=== PATIENT | female | born 1940 | race Caucasian/White ===

== ENCOUNTER 2020-10-04 06:33 | Inpatient (IN) | payer OTHER ==
[~2020-10-04] VITALS: Ht 124.5 cm; Wt 44.1 kg
--- NOTE | ~2020-10-04 | PROC ---
[address] [address] PROCEDURE REPORT Name: ARIS CATHERINE Room: [address] IN [facility]#: [id number] Admission: 10/04/20 Attend Phys: Tera Mcintosh Discharge: Date of : 42 Report #: [id number] THIS REPORT FOR: cc: FAM - No family physician/PCP FAM - No family physician/PCP [facility],Medical Records Staff ~ For GI report, please see the Provation report in Perceptive 7 content. By: 1335Medical Records Staff TERRY /HAYDE
--- NOTE | ~2020-10-04 | EMS ---
[address] [address] EMS Patient Care Report Name: ARIS CATHERINE Room: [address] IN [facility]#: [id number] Admission: 10/04/20 Attend Phys: Tera Mcintosh Discharge: Date of : 42 Report #: [id number] THIS REPORT FOR: //name// Report Transmitted: 10/04/2020 18:37 EMS Care Summary [facility] Incident [id number] @ 10/04/2020 05:54 Incident Location [address] [place] [address] Patient ARIS CATHERINE Female, 79 Years 1940 Patient Address [address] [place] [address] Patient History Breast Cancer,Cardiac Condition - Other, Patient Allergies Morphine, Chief Complaint Nausea Disposition Transported No Lights/[place] Dispatch Reason Sick Person Transported To [facility] Narrative [facility] was dispatched for Vomiting / dehydration. Upon our arrival, pt was sitting on the edge of the bed with a bowl in her hand for vomiting. Bowl was empty. Pt ws alert and oriented x4, and stated that she has been vomiting and felt bad for the last 2 days. Vitals were obtained. [place] [address] EMS Patient Care Report Name: ARIS CATHERINE Room: [address] IN [facility]#: [id number] Admission: 10/04/20 Attend Phys: Tera Mcintosh Discharge: Date of : 42 Report #: [id number] elevated, pt stated that she has high blood pressure and has not been able to keep her meds down. Medical history, High blood pressure, breast cancer {years ago, double mastectomy}, and cardiac history that pt could not remember exactly what the exact issue was with her heart. Pt also stated that she did not know what her meds were, just that her doctor had her list. Pt was transferred to the stretcher by standing and pivoting to the stretcher. Pt stated that she had a headache, 8 out of 10 on pain scale, and frequent urination with no pain upon urinating. Pt stated that her ABD was tender from vomiting so much. Denies any other pain. Pt rested comfortably enroute to the hospital and was monitored during transport. Care was transferred to [facility], Nuha OSORIO, in room 6 Initial Vitals @06:23P: 80,R: 20,BP: 207/110,Pain: 4/10,SpO2: 98, @06:01P: 80,R: 20,BP: 180/100,GCS: 15,SpO2: 97,Revised Trauma: 12, Assessments @06:01MENTAL:Person Oriented,Time Oriented,Place Oriented,Event Oriented,SKIN:HEENT:Head/Face: No Abnormalities,Eyes: No Abnormalities,Neck/Airway: No Abnormalities,LUNG SOUNDS:General: Nausea,General: Vomiting,Left Lower: Tenderness,Right Lower: Tenderness,Left Upper: No Abnormalities,Right Upper: No Abnormalities,ABDOMEN:General: Nausea,General: Vomiting,Left Lower: Tenderness,Right Lower: Tenderness,Left Upper: No Abnormalities,Right Upper: No Abnormalities,PELVIS//GI:EXTREMITIES:Right Arm: No Abnormalities,PULSE:NEURO: Impression Vomiting Timeline 05:51,Call Received 05:54,Dispatched 05:58,En Route 06:00,Initial Responder On Scene 06:00,On Scene 06:00,At Patient 06:01,BP: 180/100 M,PULSE: 80,RR: 20 R,SPO2: 97 Ox,ETCO2: ,BG: ,PAIN: ,GCS: 15, 06:08,Depart Scene 06:23,BP: 207/110 M,PULSE: 80,RR: 20 R,SPO2: 98 Ox,ETCO2: ,BG: ,PAIN: 4,GCS: , 06:27,At Destination 06:54,Call Closed 06:54,In District Disclaimer v1.1 Copyright 2020 [employer] This EMS Care Summary contains data elements from [place] [address] EMS Patient Care Report Name: ARIS CATHERINE Room: [address] IN [facility]#: [id number] Admission: 10/04/20 Attend Phys: Tera Mcintosh Discharge: Date of : 42 Report #: [id number] (which may be displayed differently). It is designed to provide pertinent information for the following purposes: continuity of care, clinical quality, and state data reporting. The complete legal record is available to ED staff and administrators of the receiving hospital in [facility]'s Patient Tracker. All data is provided "as is."
--- NOTE | ~2020-10-04 | EMS ---
[address] [address] EMS Patient Care Report Name: ARIS CATHERINE Room: [address] IN [facility]#: [id number] Admission: 10/04/20 Attend Phys: Tera Mcintosh Discharge: Date of : 42 Report #: [id number] THIS REPORT FOR: //name// Report Transmitted: 10/05/2020 19:30 EMS Care Summary [facility] Incident [id number] @ 10/04/2020 05:54 Incident Location [address] [place] [address] Patient ARIS CATHERINE Female, 79 Years 1940 Patient Address [address] [place] [address] Patient History Breast Cancer,Cardiac Condition - Other, Patient Allergies Morphine, Chief Complaint Nausea Disposition Transported No Lights/[place] Dispatch Reason Sick Person Transported To [facility] Narrative [facility] was dispatched for Vomiting / dehydration. Upon our arrival, pt was sitting on the edge of the bed with a bowl in her hand for vomiting. Bowl was empty. Pt ws alert and oriented x4, and stated that she has been vomiting and felt bad for the last 2 days. Vitals were obtained. B/[place] [address] EMS Patient Care Report Name: ARIS CATHERINE Room: [address] IN [facility]#: [id number] Admission: 10/04/20 Attend Phys: Tera Mcintosh Discharge: Date of : 42 Report #: [id number] elevated, pt stated that she has high blood pressure and has not been able to keep her meds down. Medical history, High blood pressure, breast cancer {years ago, double mastectomy}, and cardiac history that pt could not remember exactly what the exact issue was with her heart. Pt also stated that she did not know what her meds were, just that her doctor had her list. Pt was transferred to the stretcher by standing and pivoting to the stretcher. Pt stated that she had a headache, 8 out of 10 on pain scale, and frequent urination with no pain upon urinating. Pt stated that her ABD was tender from vomiting so much. Denies any other pain. Pt rested comfortably enroute to the hospital and was monitored during transport. Care was transferred to [facility], Nuha OSORIO, in room 6 Initial Vitals @06:23P: 80,R: 20,BP: 207/110,Pain: 4/10,SpO2: 98, @06:01P: 80,R: 20,BP: 180/100,GCS: 15,SpO2: 97,Revised Trauma: 12, Assessments @06:01MENTAL:Person Oriented,Time Oriented,Place Oriented,Event Oriented,SKIN:HEENT:Head/Face: No Abnormalities,Eyes: No Abnormalities,Neck/Airway: No Abnormalities,LUNG SOUNDS:General: Nausea,General: Vomiting,Left Lower: Tenderness,Right Lower: Tenderness,Left Upper: No Abnormalities,Right Upper: No Abnormalities,ABDOMEN:General: Nausea,General: Vomiting,Left Lower: Tenderness,Right Lower: Tenderness,Left Upper: No Abnormalities,Right Upper: No Abnormalities,PELVIS//GI:EXTREMITIES:Right Arm: No Abnormalities,PULSE:NEURO: Impression Vomiting Timeline 05:51,Call Received 05:54,Dispatched 05:58,En Route 06:00,Initial Responder On Scene 06:00,On Scene 06:00,At Patient 06:01,BP: 180/100 M,PULSE: 80,RR: 20 R,SPO2: 97 Ox,ETCO2: ,BG: ,PAIN: ,GCS: 15, 06:08,Depart Scene 06:23,BP: 207/110 M,PULSE: 80,RR: 20 R,SPO2: 98 Ox,ETCO2: ,BG: ,PAIN: 4,GCS: , 06:27,At Destination 06:54,Call Closed 06:54,In District Disclaimer v1.1 Copyright 2020 [employer] This EMS Care Summary contains data elements from the [place] [address] EMS Patient Care Report Name: ARIS CATHERINE Room: [address] IN [facility]#: [id number] Admission: 10/04/20 Attend Phys: Tera Mcintosh Discharge: Date of : 42 Report #: [id number] (which may be displayed differently). It is designed to provide pertinent information for the following purposes: continuity of care, clinical quality, and state data reporting. The complete legal record is available to ED staff and administrators of the receiving hospital in [facility]'s Patient Tracker. All data is provided "as is."
[2020-10-04 06:41] VITALS: BP 194/110
[2020-10-04] MEDS ORDERED: TOPROL XL25 MG PO (06:49)
[2020-10-04] MEDS ORDERED: LIPITOR10 MG PO (06:50)
[2020-10-04] MEDS ORDERED: HYDROCODON-ACE1 EAC7 PO (06:50)
[2020-10-04] MEDS ORDERED: PLAVIX 75 MG TA75 MG PO (06:50)
[2020-10-04 06:54] LABS: HEMATOCRIT 29.2 % (37.0-47.0); HEMOGLOBIN 9.6 gm/dL (12.0-15.0); MCH 29.5 pg (26.0-34.0); MCV 89.6 fL (80.0-100.0); MPV 6.4 fl. (7.2-11.1); NUCLEATED RBCS 0 /100WBC; PLATELET COUNT* 710 thou/uL (150-400); RBC 3.25 mil/uL (4.20-5.00); WBC 13.6 thou/uL (4.0-11.0)
[2020-10-04 07:04] LABS: ANION GAP 12 mmol/L (7-16); BUN 31 mg/dL (7-18); CALCIUM 10.6 mg/dL (8.5-10.1); CHLORIDE 101 mmol/L (98-107); CO2 24 mmol/L (21-32); CREATININE 1.6 mg/dL (0.6-1.3); GLUCOSE 182 mg/dL (70-99); POTASSIUM 3.8 mmol/L (3.5-5.1); SODIUM 137 mmol/L (136-145)
[2020-10-04 07:13] LABS: PROTIME 10.2 Seconds (9.20-11.50)
[2020-10-04 07:14] LABS: ALBUMIN 2.7 g/dL (3.4-5.0); ALKALINE PHOSPHATASE 97 U/L (46-116); NT-PRO BRAIN NAT PEPTIDE > 35000 pg/mL (<300); SGOT 17 U/L (15-37); SGPT 27 U/L (30-65); TOTAL BILIRUBIN 0.2 mg/dL (<0.1-1.0); TOTAL PROTEIN 8.3 g/dL (6.4-8.2)
[2020-10-04 07:59] LABS: URINE BILIRUBIN NEGATIVE (Negative); URINE BLOOD 3+ (Negative); URINE CLARITY CLEAR; URINE COLOR YELLOW; URINE GLUCOSE-RANDOM TRACE (Negative); URINE KETONES NEGATIVE (Negative); URINE LEUKOCYTES-REFLEX NEGATIVE (Negative); URINE PROTEIN 2+ (Negative); URINE UROBILINOGEN 0.2 E.U./dl (0.2-1.0)
[2020-10-04 08:01] LABS: ABSOLUTE LYMPHOCYTES 1.4 thou/uL (0.8-5.3); ABSOLUTE MONOCYTES 0.4 thou/uL (0.0-1.2); ABSOLUTE NEUTROPHILS 11.8 thou/uL (1.6-8.1); HYPOCHROMASIA 1+; PLATELET ESTIMATE INCREASED
[2020-10-04 08:02] LABS: MICROCYTES Occasional
[2020-10-04 08:03] LABS: URINE NITRITE-REFLEX POSITIVE (Negative)
[2020-10-04 08:06] LABS: BACTERIA-REFLEX >30 Many /HPF (None Seen); CASTS None Seen /LPF (None Seen); CRYSTALS None Seen /LPF (None Seen); MUCUS None Seen strn/LPF (None Seen); SQUAMOUS 0-3 Few /LPF (0-3); URINE RBC 3-10 Few /HPF (0-2); URINE WBC-REFLEX None Seen /HPF (0-5)
[2020-10-04 09:25] LABS: CALCIUM 10.1 mg/dL (8.5-10.1); CREATININE 1.6 mg/dL (0.6-1.3); POTASSIUM 3.4 mmol/L (3.5-5.1)
[2020-10-04] MEDS ORDERED: ZOFRAN ODT4 MG PO (11:38)
[2020-10-04] MEDS ORDERED: CEPHALEXIN500 MG PO (11:38)
[2020-10-04 16:00] VITALS: BP 185/88
[2020-10-04 21:00] VITALS: BP 171/91
[2020-10-05] VITALS (7 sets, daily range): BP systolic 119–183; BP diastolic 46–111
--- NOTE | 2020-10-05 10:11 | NUR ---
PT IS 79 Y/O FEMALE BOARDING IN PACU BAY "C" UNTIL MED/SURG BED BECOMES AVAILABLE. PT IS AXOX4. HR IN THE ONE TEENS UPON ARRIVAL TO PRE OP. B/P ELEVATED AT 160/104. PT STATES SHE HAS CHRONIC BILATERAL NECK/SHOULDER PAIN WHICH SHE RATES AT A 7/10. SHE TAKES HYDROCODONE (SHE STATES THIS IS THE ONLY PAIN PILL WHICH WORKS FOR HER) FOR HER CHRONIC PAIN. PT IS HERE FOR PYELONEPHRITIS. SHE WILL BE RCVNG ANTIBIOTICS WELL (RCV'D IV ROCEPHIN IN ER YESTERDAY). ROOM AIR. PT HAS D5NS RUNNING AT 100 ML/HR. PT NAUSEOUS, GIVEN SCHEDULED PHENERGAN. CALL LIGHT WITHIN REACH. WILL CONTINUE TO MONITOR PT CLOSELY.
[2020-10-05 11:44] LABS: CREATININE 1.5 mg/dL (0.6-1.3); POTASSIUM 3.5 mmol/L (3.5-5.1)
[2020-10-05 11:47] LABS: MAGNESIUM 1.9 mg/dL (1.8-2.4); PHOSPHORUS* 3.1 mg/dL (2.5-4.9)
--- NOTE | 2020-10-05 12:44 | NUR ---
Admission Assessment Admitted from Ambulance from home Mental Status upon admission Alert & Oriented x 3 Living Arrangements: Stairs nephews House -inlaw quarters in basement Lives with: or they live with patient Other family: Pt recently moved in with Nephew Basilio and his Trena Support system: Name Phone number Chin Marino [phone] Nephew Can patient return to prior living arrangements? Yes Activities of daily living: Dependent Trena-niece, assists pt with bathing, dressing, takes her to Dr taylor and prepares meals Assistive device: Bathroom set up with handicap -bars , Roller Walker, Shower chair Prior resource use: Home healthcare services-Doesn't want to use same company, believes stole money off table.-this was in [place], [place]. HH after hospitalization year ago. Rehab in [place], [place] x4 weeks after surgery last year
--- NOTE | 2020-10-05 14:04 | EKG ---
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 : 1940 Requested By: Ama Montero Order Number: [id number] MD: Diego Carranza Measurements Intervals [place] Rate: 80 P: 140 WA: 154 QRS: 134 QRSD: 98 T: 150 QT: 402 QTc: 464 Interpretive Statements Sinus or ectopic atrial rhythm Left posterior fascicular block Low voltage, extremity leads Abnormal R-wave progression, late transition Abnrm T, consider ischemia, anterolateral lds No previous ECG available for comparison Electronically Signed On 10-05-2020 14:04:11 CDT by Diego Carranza [email or web address] <ELECTRONICALLY SIGNED> By: Diego Carranza MD, [facility] 10/05/20 1404 0656 Diego Carranza MD, [facility] /EPI
--- NOTE | 2020-10-05 14:34 | NUR ---
PT C/O THAT THE HYDROCODONE SHE TAKES FOR HER CHRONIC NECK/SHOULDER PAIN ONLY LASTED 2 HOURS. PT ASKING FOR MORE PAIN MEDICATION. PT ALSO STATES SHE IS NAUSEOUS AGAIN. ASKED PT IF SHE SPOKE W/DOCTOR WHEN HE WAS HERE RECENTLY ABOUT HER CHRONIC BACK PAIN. PT STATED, "NO, CAN YOU PLEASE TALK TO HIM." YOU CALL MD SENT TO DR. YOON. PT GIVEN IV ZOFRAN.
--- NOTE | 2020-10-05 16:20 | NUR ---
PT TAKEN UPSTAIRS TO ROOM 215 VIA BED. REPORT GIVEN TO DEVON CHEATHAM.
--- NOTE | 2020-10-05 19:40 | NUR ---
Pt arrived to floor around 1630. Pt settled into room. Vitals signs stable. This nurse agrees with morning assessment done by previous nurse. Bed in low position, bed alarm on, call light within reach.
[2020-10-06 01:18] VITALS: BP 162/110
[2020-10-06 04:34] VITALS: BP 153/94
--- NOTE | 2020-10-06 06:42 | NUR ---
PT SLEPT OFF AND ON OVERNIGHT. CO NAUSEA BUT NO EMESIS, PAIN AND NAUSEA MEDS GIVEN ORDERED. PT TURNED AND REPOSITIONED Q2 HOURS AND PRN FOR SKIN CARE AND COMFORT, JAZZY GIVEN AND BARRIER CREAM APPLIED TO RED BUTTOCKS. WOUND PHOTO TAKEN AND PLACED IN CHART. RAC IVF INFUSING PER PUMP. ABLE TO USE CALL LITE AND MAKE NEEDS KNOWN. UP TO BSC TO VOID AND SOME STRESS INCONTINENCE NOTED.
--- NOTE | 2020-10-06 08:31 | NUR ---
WOUND NURSE: PATIENT SEEN TO ADDRESS REDNESS AND MINOR EXCORIATION TO SACRUM AND BUTTOCKS. PRESENTS WITH LOCALIZED REDNESS AND TENDERNESS AND MINOR EXCORIATION TO COCCYX. PATIENT REPORTS THIS DEVELOPED WITH BOWEL INCONTINENCE. PATIENT WEARS INCONTINENCE BRIEFS. CLEANSED WITH PERINEAL WIPES, THEN APPLIED Z-GUARD MOISTURE BARRIER PASTE. PATIENT STATED IT FELT BETTER ALREADY. SUSPECT THIS IS INCONTINENCE ASSOCIATED DERMATITIS. RECOMMEND CONTINUE Z-GUARD Q SHIFT.
--- NOTE | 2020-10-06 15:52 | NUR ---
Anticipate dc tomorrow. Plan home with HH
--- NOTE | 2020-10-06 20:30 | NUR ---
Pt reamined A&O x4 for entire shift. Pt pleasant with staff, vital signs stable. Pt complains of nausea with little relief. Meds given per MAR. Pt did not vomit, just complaints of nausea. Pt noted being able to keep a few bites of lunch and dinner down. Bed in low position, bed alarm on, call light within reach.
--- NOTE | 2020-10-06 21:00 | NUR ---
RECEIVED REPORT FROM LEIF OSORIO PRIOR TO PATIENT ARRIVAL AT 2111 IN STABLE CONDITION BY BED. ORIENTED TO ROOM AND ROUTINES. CONTINUE TO MONITOR.
[2020-10-06 21:12] VITALS: BP 141/84
--- NOTE | 2020-10-07 04:52 | NUR ---
PATIENT HAS REMAINED ALERT AND ORIENTED X 4 FROM ARRIVAL TO UNIT AT 2112 THROUGHOUT THE SHIFT AND RESTING QUIETLY ON HOURLY ROUNDS. UP TO BSC WITH CGA. STRESS INCONT AT TIMES. JAZZY-CARE COMPLETED HS WITH Z-GUARD CREAM APPLIED TO SACRUM/BUTTOCKS WOUNDS. TURNED Q2 HOURS WITH PATIENT TURNING SELF AT TIMES. MEDICATED FOR PAIN PER PATIENT REQUEST X 1 OF THIS WRITING FOR CHRONIC ARTHRITIS PAIN TO GOOD EFFECT. VITAL SIGNS STABLE. MEDS PER ORDER. HS SNACK PROVIDED WITHOUT NAUSEA OR EMESIS. FALL PRECAUTIONS IN PLACE. CONTINUE TO MONITOR.
[2020-10-07 07:47] VITALS: BP 144/85
[2020-10-07 11:25] VITALS: BP 144/85
[2020-10-07 14:35] VITALS: BP 144/85
--- NOTE | 2020-10-07 14:54 | NUR ---
CM faxed HH referral to [facility] to see if they will be able [place]
[2020-10-07 16:06] VITALS: BP 127/85
[2020-10-08 00:18] VITALS: BP 147/87
--- NOTE | 2020-10-08 07:57 | NUR ---
PATIENT SLEPT MOST OF THE NIGHT. PATIENT WAS GIVEN PAIN AND NAUSEA MEDS TWICE THIS SHIFT. PATIENT COULD POSSIBLY DC HOME TODAY.
[2020-10-08 08:00] VITALS: BP 143/93
[2020-10-08 11:48] LABS: ABSOLUTE BASOPHILS 0.1 thou/uL (0.0-0.2); ABSOLUTE EOSINOPHILS 0.3 thou/uL (0.0-0.7); ABSOLUTE LYMPHOCYTES 1.2 thou/uL (0.8-5.3); ABSOLUTE MONOCYTES 0.8 thou/uL (0.0-1.2); ABSOLUTE NEUTROPHILS 9.1 thou/uL (1.6-8.1); BASOPHILS 0.6 %; EOSINOPHILS 2.7 %; HEMOGLOBIN 7.3 gm/dL (12.0-15.0); LYMPHOCYTES 10.2 %; MCH 28.7 pg (26.0-34.0); MCHC 31.7 g/dL (28.0-37.0); MCV 90.4 fL (80.0-100.0); MONOCYTES 7.1 %; NUCLEATED RBCS 0 /100WBC; PLATELET COUNT* 428 thou/uL (150-400); POLYS 79.4 %; RBC 2.55 mil/uL (4.20-5.00); RDW-CV 18.4 % (10.5-14.5); WBC 11.5 thou/uL (4.0-11.0)
[2020-10-08 11:53] LABS: ALBUMIN 2.2 g/dL (3.4-5.0); CALCIUM 8.2 mg/dL (8.5-10.1); CREATININE 1.6 mg/dL (0.6-1.3); POTASSIUM 3.1 mmol/L (3.5-5.1); TOTAL BILIRUBIN 0.2 mg/dL (<0.1-1.0); TOTAL PROTEIN 6.3 g/dL (6.4-8.2)
--- NOTE | 2020-10-08 14:22 | NUR ---
Anticipate dc in 1-2 days. Pt continues to have n/v. Plan is home with [facility] to fax orders at dc, initial referral sent yesterday and [facility] is able to accept Pt. [facility] f: [phone]
[2020-10-08 16:31] VITALS: BP 139/96
--- NOTE | 2020-10-08 17:28 | NUR ---
PATIENT RESTING IN BED. PATIENT IS UP WITH MODERATE ASSIST OF ONE TO CHAIR. PATIENT HAS HAD COMPLAINTS OF BACK AND COCCYX PAIN TREATED PARTIALLY WITH MEDICATION. CREAM APPLIED TO COCCYX ORDERED. PATIENT HAS FAIR APPETITE. IV ABX INFUSED ORDERED. PATIENT DENIES ANY NEEDS AT THIS TIME. CALL LIGHT WITHIN REACH.
[2020-10-08 20:00] VITALS: BP 139/92
[2020-10-09 08:04] VITALS: BP 135/94
[2020-10-09 08:05] VITALS: BP 135/94
--- NOTE | 2020-10-09 08:09 | NUR ---
Alert and oriented x 4. She is up with stand by assist x1 to bedside commode. She is having shoulder and back pain and had painmeds x 3 this shift. Nausea med x 1. She has slept well.
[2020-10-09 08:55] LABS: ABSOLUTE BASOPHILS 0.1 thou/uL (0.0-0.2); ABSOLUTE EOSINOPHILS 0.4 thou/uL (0.0-0.7); ABSOLUTE LYMPHOCYTES 1.4 thou/uL (0.8-5.3); ABSOLUTE MONOCYTES 0.8 thou/uL (0.0-1.2); ABSOLUTE NEUTROPHILS 8.9 thou/uL (1.6-8.1); BASOPHILS 0.7 %; EOSINOPHILS 3.4 %; HEMATOCRIT 24.1 % (37.0-47.0); HEMOGLOBIN 7.6 gm/dL (12.0-15.0); LYMPHOCYTES 11.9 %; MCH 28.8 pg (26.0-34.0); MCHC 31.4 g/dL (28.0-37.0); MCV 91.6 fL (80.0-100.0); MONOCYTES 7.2 %; NUCLEATED RBCS 0 /100WBC; PLATELET COUNT* 411 thou/uL (150-400); POLYS 76.8 %; RBC 2.63 mil/uL (4.20-5.00); RDW-CV 18.5 % (10.5-14.5); WBC 11.6 thou/uL (4.0-11.0)
[2020-10-09 09:06] LABS: CREATININE 1.7 mg/dL (0.6-1.3); POTASSIUM 3.4 mmol/L (3.5-5.1)
--- NOTE | 2020-10-09 15:04 | NUR ---
Anticipate dc this weekend. Urology consulted. Pt continues to have n/v and pain. Plan home with [facility] at dc. Initial referral faxed, dc orders will need to be faxed at discharge to [phone]
[2020-10-09 15:57] VITALS: BP 143/92
--- NOTE | 2020-10-09 18:36 | NUR ---
PATIENT RESTING IN BED. PATIENT HAS COMPLAINTS OF BACK/SHOULDER/NECK PAIN, TREATED ADEQUATELY WITH MEDICATION. PATIENT HAS COMPLAINTS OF NAUSEA, SCHEDULED PHENERGAN GIVEN. PATIENT HAS GOOD APPETITE. PATIENT IS UP WITH ASSIST. PATIENT HAS SMALL WOUND TO COCCYX, OINTMENT APPLIED ORDERED. PATIENT DENIES ANY NEEDS AT THIS TIME. CALL LIGHT WITHIN REACH.
[2020-10-09 22:00] VITALS: BP 140/92
[2020-10-10 05:23] LABS: HEMATOCRIT 23.4 % (37.0-47.0); HEMOGLOBIN 7.6 gm/dL (12.0-15.0); MCH 29.7 pg (26.0-34.0); MCHC 32.4 g/dL (28.0-37.0); MCV 91.8 fL (80.0-100.0); MPV 7.2 fl. (7.2-11.1); RBC 2.55 mil/uL (4.20-5.00); RDW-CV 18.5 % (10.5-14.5); WBC 11.4 thou/uL (4.0-11.0)
[2020-10-10 05:44] LABS: CALCIUM 8.4 mg/dL (8.5-10.1); CREATININE 1.6 mg/dL (0.6-1.3); POTASSIUM 3.4 mmol/L (3.5-5.1)
--- NOTE | 2020-10-10 08:38 | NUR ---
PATIENT HAS SLEPT WELL [id number] MOST OF THE NIGHT. VSS ON RA. MEDICATIONS GIVEN ORDERED AND CHARTED. IV IN LEFT FOREARM-D5 NS @ 100ML/HR. PATIENT INSTRUCTED TO USE CALL LIGHT WHEN NEEDING ASSISTANCE. HOURLY ROUNDS MADE. WILL CONTINUE WITH PLAN OF CARE AND NURSING TO MONITOR.
[2020-10-10 09:15] VITALS: BP 162/99
[2020-10-10 16:00] VITALS: BP 140/100
[2020-10-10 20:00] VITALS: BP 135/106
[2020-10-10 22:15] VITALS: BP 138/98
--- NOTE | 2020-10-10 22:58 | NUR ---
PATIENT STATED EXTREME FEELING OF BEING UNABLE TO BREATH AFTER TRIP TO [facility]. SPOT O2 SAT 86-95% WITH VERY RAPID HR. EKG OBTAINED AND EKG/ECG TECHNICIAN NOTIFIED. BEDSIDE EKG ASSESSMENT (AFIB) BY EKG/ECG TECHNICIAN WHO THEN CONTACTED DR. ANDRADE TO UPDATE ON STATUS. NEW ORDERS RECEIVED. PATIENT CURRENTLY RESTING QUIETLY WITH O2 ON. FEELS BETTER. NOTE HR CONTINUES TO FLUCUATE. REPORT CALLED TO MASSIMO Parr RN FOR R0OM 117 TRANSFER. PATIENT UPDATED ON PLAN OF CARE. PATIENT DECLINED TO HAVE ANY FAMILY CALLED AT THIS TIME. LEFT ROOM 315 BY BED WITH CONTINUOUS O2, IVF AND ALL BELONGINGS.
[2020-10-10 23:50] VITALS: BP 154/101
[2020-10-11 04:00] VITALS: BP 130/82
--- NOTE | 2020-10-11 04:16 | NUR ---
PT APPEARS TO BE KRISTIAN IN SINUS RYTHM
[2020-10-11 08:00] VITALS: BP 115/75
[2020-10-11 09:20] LABS: HEMATOCRIT 23.5 % (37.0-47.0); HEMOGLOBIN 7.5 gm/dL (12.0-15.0); MCH 29.1 pg (26.0-34.0); MCHC 32.1 g/dL (28.0-37.0); MCV 90.7 fL (80.0-100.0); MPV 6.9 fl. (7.2-11.1); RBC 2.6 mil/uL (4.20-5.00); RDW-CV 19.2 % (10.5-14.5); WBC 12.3 thou/uL (4.0-11.0)
[2020-10-11 09:31] LABS: CALCIUM 8.6 mg/dL (8.5-10.1); CREATININE 1.5 mg/dL (0.6-1.3); POTASSIUM 3.8 mmol/L (3.5-5.1)
[2020-10-11 12:00] VITALS: BP 137/62
[2020-10-11 16:00] VITALS: BP 144/78
[2020-10-11 21:33] VITALS: BP 115/66
[2020-10-12 03:46] VITALS: BP 114/66
[2020-10-12 04:54] LABS: HEMATOCRIT 23.1 % (37.0-47.0); HEMOGLOBIN 7.2 gm/dL (12.0-15.0); MCH 29.1 pg (26.0-34.0); MCHC 31.1 g/dL (28.0-37.0); MCV 93.5 fL (80.0-100.0); RBC 2.47 mil/uL (4.20-5.00); RDW-CV 19.5 % (10.5-14.5); WBC 13.2 thou/uL (4.0-11.0)
[2020-10-12 05:12] LABS: CALCIUM 8.6 mg/dL (8.5-10.1); CREATININE 1.6 mg/dL (0.6-1.3); POTASSIUM 3.8 mmol/L (3.5-5.1)
[2020-10-12 05:51] LABS: CHOLESTEROL 97 mg/dL (<200); HDL CHOLESTEROL 37 mg/dL (>40); LDL CHOLESTEROL 45 mg/dL (<100); TC:HDL 2.6 Ratio (Not establshd); TRIGLYCERIDE 77 mg/dL (<150); VLDL 15 mg/dL (<40)
--- NOTE | 2020-10-12 06:04 | NUR ---
PT A&OXE4, VSS ON 2L NC, PT UP TO BSC WITH ASSIST. CARDIZEM DRIP AND MAINTENANCE IV FLUIDS INFUSING ORDERED. PRN PAIN AND ANTIEMEMIC MEDS GIVEN ORDERED AND REQUESTED. PT SLEEPING WELL, WILL CONTINUE TO MONITOR.
[2020-10-12 06:08] LABS: SERUM ASSESSMENT Clear
[2020-10-12 08:20] VITALS: BP 128/67
--- NOTE | 2020-10-12 09:52 | EKG ---
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 : 1940 Requested By: Jeremie Zhang Order Number: [id number] Reading MD: Osbaldo Rogers Measurements Intervals [place] Rate: 98 P: -17 IN: 107 QRS: 103 QRSD: 92 T: -73 QT: 384 QTc: 491 Interpretive Statements Sinus rhythm Short IN interval Probable anterior infarct, age indeterminate Compared to ECG 10/04/2020 06:56:01 Short IN interval now present Myocardial infarct finding now present Ectopic atrial rhythm no longer present Left posterior fascicular block no longer present Possible ischemia no longer present Electronically Signed On 10-12-2020 9:52:07 CDT by Osbaldo Rogers [email or web address] <ELECTRONICALLY SIGNED> By: Osbaldo Rogers MD, [facility] 10/12/20 0952 1023 1023 Osbaldo Rogers MD, [facility] /EPI
--- NOTE | 2020-10-12 09:55 | EKG ---
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 : 1940 Requested By: Destin Rogel Order Number: [id number] Lucinda MD: Osbaldo Rogers Measurements Intervals [place] Rate: 115 P: AK: QRS: -72 QRSD: 80 T: QT: 351 QTc: 486 Interpretive Statements multifocal atrial tachycardia Left anterior fascicular block Anterior infarct, old Borderline T abnormalities, inferior leads Compared to ECG 10/09/2020 10:23:22 Left anterior fascicular block now present Sinus rhythm no longer present Myocardial infarct finding still present Electronically Signed On 10-12-2020 9:54:50 CDT by Osbaldo Rogers [email or web address] <ELECTRONICALLY SIGNED> By: Osbaldo Rogers MD, [facility] 10/12/20 0954 222 Osbaldo Rogers MD, [facility] /EPI
--- NOTE | 2020-10-12 09:58 | EKG ---
[place] [address] ELECTROCARDIOGRAM REPORT Name: ARIS CATHERINE Room: [address] ADM IN .R.#: [id number] Admission: 10/04/20 Attend Phys: Destin Rogel Discharge: Date of : 42 Date of Service: 10/11/20 1249 Report #: [id number] THIS REPORT FOR: //name// [facility] Test Date: 2020-10-11 Test Time: 12:49:47 Pat Name: ARIS CATHERINE Department: Room: [address] Gender: F Order Management Specialist: : 1940 Requested By: Destin Rogel Order Number: [id number] Reading MD: Osbaldo Rogers Measurements Intervals [place] Rate: 93 P: 66 [place]: 157 QRS: -63 QRSD: 87 T: -85 QT: 365 QTc: 454 Interpretive Statements multifocal atrial tachycardia LAD, consider left anterior fascicular block Anteroseptal infarct, age indeterminate Nonspecific T abnormalities, inferior leads Compared to ECG 10/10/2020 22:24:29 Myocardial infarct finding still present T-wave abnormality still present Electronically Signed On 10-12-2020 9:58:46 CDT by Osbaldo Rogers [email or web address] <ELECTRONICALLY SIGNED> By: Osbaldo Rogers MD, [facility] 10/12/20 0958 1249 1249 Osbaldo Rogers MD, [facility] /EPI
[2020-10-12 12:00] VITALS: BP 103/64
--- NOTE | 2020-10-12 13:16 | 2DMMODE ---
[place] [address] 2 D/M-MODE ECHOCARDIOGRAM Name: ARIS CATHERINE Room: [address] IN [facility]#: [id number] Admission: 10/04/20 Attend Phys: Destin Rogel Discharge: Date of : 42 Date of Service: 10/12/20 1315 Report #: [id number] THIS REPORT FOR: cc: FAM - No family physician/PCP FAM - No family physician/PCP Osbaldo Rogers MD [facility] ~ APPROVED REPORT Study performed: 10/12/2020 11:24:07 EXAM: Comprehensive 2D, Doppler, and color-flow Echocardiogram Patient Location: In-Patient Room #: 231 BSA: 1.29 HR: 70 bpm BP: 114/66 mmHg Other Information Study Quality: Good Indications Abnormal ECG 2D Dimensions IVSd: 11.28 (7-11mm) LVOT Diam: 20.63 (18-24mm) LVDd: 44.07 mm PWd: 9.07 (7-11mm) Ascending Ao: 32.23 (22-36mm) LVDs: 33.43 (25-40mm) Aortic Root: 27.12 mm Volumes Left Atrial Volume (Systole) LA ESV Index: 37.50 mL/m2 Aortic Valve AoV Peak Rudy.: 1.49 m/s AO Peak Gr.: 8.89 mmHg LVOT Max P.34 mmHg AO Mean Gr.: 4.23 mmHg LVOT Mean P.61 mmHg LVOT Max V: 0.58 m/s AO V2 VTI: 24.77 cm LVOT Mean V: 0.35 m/s SUDARSHAN (VTI): 1.37 cm2 LVOT V1 VTI: 10.15 [place] [address] 2 D/M-MODE ECHOCARDIOGRAM Name: ARIS CATHERINE Room: [address]#: [id number] Admission: 10/04/20 Attend Phys: Destin Rogel Discharge: Date of : 42 Date of Service: 10/12/20 1315 Report #: [id number] E/A Ratio: 2.18 MV Decel. Time: 145.04 ms MV E Max Rudy.: 0.63 m/s MV PHT: 42.06 ms MVA (PHT): 5.23 cm2 TDI E/Lateral E': 7.00 E/Medial E': 7.88 Medial E' Rudy.: 0.08 m/s Lateral E' Rudy.: 0.09 m/s Pulmonary Valve PV Peak Rudy.: 0.61 m/s PV Peak Gr.: 1.49 mmHg Tricuspid Valve RAP Estimate: 5.00 mmHg TR Peak Gr.: 26.10 mmHg RVSP: 31.10 mmHg PA Pressure: 31.10 mmHg Left Ventricle The left ventricle is normal size. apical akinesis noted There is normal left ventricular wall thickness. Left ventricular ejection fraction is moderately decreased. LVEF is 30-35%. Right Ventricle Right ventricle is mildly dilated. The right ventricular systolic function is normal. Atria Left atrium is moderately dilated. The right atrium size is normal. Aortic Valve Moderate aortic valve sclerosis. No aortic regurgitation is present. There is no aortic valvular stenosis. Mitral Valve The mitral valve is normal in structure. Moderate mitral regurgitation. No evidence of mitral valve stenosis. Tricuspid Valve The tricuspid valve is normal in structure. Mild tricuspid regurgitation. estimated pa pressure 45 mm Hg Pulmonic Valve The pulmonary valve is normal in structure. [place] [address] 2 D/M-MODE ECHOCARDIOGRAM Name: ARIS CATHERINE Room: [address]#: [id number] Admission: 10/04/20 Attend Phys: Destin Rogel Discharge: Date of : 42 Date of Service: 10/12/20 1315 Report #: [id number] valvular regurgitation. Great Vessels The aortic root is normal in size. IVC is normal in size and collapses >50% with inspiration. Pericardium There is no pericardial effusion. Large left pleural effusion. <Conclusion> LVEF is 30-35%. Right ventricle is mildly dilated. Left atrium is moderately dilated. Moderate aortic valve sclerosis. Moderate mitral regurgitation. Mild tricuspid regurgitation. estimated pa pressure 45 mm Hg <ELECTRONICALLY SIGNED> By: Osbaldo Rogers MD, [facility] 10/12/20 1315 1315 Osbaldo Rogers MD, FAC /INF
--- NOTE | 2020-10-12 13:39 | NUR ---
PLAN OF CARE: PHYSICIAN INFORMS THAT THE PT IS NOT MEDICALLY STABLE FOR D/C AT THIS TIME. UROLOGY CONSULTED. PLAN REMAINS FOR THE PT TO D/C HOME WITH HH WHEN MEDICALLY STABLE. PT HAD CHOSEN [facility] AND INITIAL REFERRAL HAD BEEN FAXED LAST MONDAY. [facility] WILL NEED D/C ORDERS FAXED WHEN AVAILABLE. CM WILL REMAIN AVAILABLE TO ASSIST AND FOLLOW NEEDED.
[2020-10-12 16:00] VITALS: BP 124/85
--- NOTE | 2020-10-12 17:12 | CON ---
[address] [address] CONSULTATION Name: ARIS CATHERINE Room: [address] IN [facility].#: [id number] Admission: 10/04/20 Attend Phys: Tera Mcintosh Discharge: Date of : 42 Report #: [id number] THIS REPORT FOR: cc: JUAN LUIS - No family physician/PCP FAM - No family physician/PCP Osbaldo Rogers MD [facility] ~ cc: Orlando Bullock DO CARDIOLOGY CONSULTATION HISTORY OF PRESENT ILLNESS: The patient is a 79-year-old single white female who I was asked to see in the hospital today after she was noted to have an abnormal ECG. The history is obtained from the patient as well as the current chart. The patient has an extensive past medical history. She noted she presented in 2000 with an abnormal stress test. She was found to have coronary artery disease and underwent triple vessel bypass surgery at [facility]. She did well until 2014, she was having symptoms of cholecystitis. She was admitted to [facility] and was scheduled to have her gallbladder removed. However, she apparently had a syncopal spell and had a heart catheterization at [facility] and had 3 coronary artery stents placed. She is not very active because of chronic back pain. She also notes that 10 years ago she was admitted to [facility] with atrial fibrillation. She did not require cardioversion. She was on warfarin for about a year. Recently, she denies any chest pain, increased shortness of breath, palpitations, syncope, peripheral edema. She was admitted here to [facility] 5 days ago with nausea and vomiting. She was noted to have urinary tract infection, kidney stones, anemia. Last night on the monitor, she was noted to have an irregular heartbeat. Cardiology consultation was requested. PAST MEDICAL HISTORY: Otherwise, she has had previous bilateral mastectomy for breast cancer, cholecystectomy, hysterectomy, spinal stenosis, hypertension, hyperlipidemia. MEDICATIONS: Include Plavix, metoprolol, atorvastatin. ALLERGIES: She has INTOLERANCE TO MORPHINE. FAMILY HISTORY: Her mother had bypass surgery. SOCIAL HISTORY: She is single. Lives in [place], [place]. She does go for walks. Quit smoking a year ago. No alcohol abuse. REVIEW OF SYSTEMS: No history of stroke, asthma, liver disease, kidney disease. She wears glasses. She has spinal stenosis. [place] [address] CONSULTATION Name: ARIS CATHERINE Room: [address]#: [id number] Admission: 10/04/20 Attend Phys: Tera Mcintosh Discharge: Date of : 42 Report #: [id number] chronic skin condition. PHYSICAL EXAMINATION: GENERAL: Revealed an elderly female, lying in bed. She appeared in no distress. VITAL SIGNS: She had a blood pressure of 120/70, pulse is 100. She is afebrile. HEENT: She was anicteric. Conjunctivae pink. Mucosa moist. NECK: Veins nondistended. No carotid bruits. Neck supple. CHEST: Clear to auscultation. HEART: Irregular, tachycardia. No significant murmur. ABDOMEN: Soft. EXTREMITIES: Had no edema. SKIN: Cool and dry. NEUROLOGIC: Nonfocal. LYMPHATIC: No adenopathy. MUSCULOSKELETAL: No joint effusion. LABORATORY DATA: Her ECG on admission showed a sinus rhythm with nonspecific ST and T-wave changes. On the monitor, she is predominantly in a sinus rhythm; however, last night, she was noted to be tachycardic. An ECG appears to show multifocal atrial tachycardia, left axis, nonspecific T-wave changes. This morning, the patient is back in a sinus rhythm. Her workup so far included a chest x-ray that showed chronic interstitial changes, tortuous aorta. Her lab work, sodium 145, creatinine 1.5. Her albumin is only 2.2. Troponins all 0.06. BNP 35,000. White blood cell count 12.3; hemoglobin was 9.6 on admission, it is currently 7.5. Her iron saturation 24%. COVID antigen stat test was negative. Urinalysis; 2+ protein, 3+ blood, many bacteria. IMPRESSION AND RECOMMENDATIONS: 1. Previous coronary artery bypass surgery. No significant angina. The patient is currently on Plavix. 2. Previous stents. The patient on ____ Plavix. I would not recommend stress testing at this time. 3. History of atrial fibrillation. No clinical recurrences. The patient no longer on warfarin. 4. Irregular tachycardia. ECG last night appears to show multifocal atrial tachycardia. I would continue beta-rosaline. 5. Spinal stenosis. 6. History of breast cancer. 7. Hypertension. The patient is on a beta-rosaline. 8. Hyperlipidemia. The patient is on a statin drug. 9. Anemia. No history of bleeding. [address] [address] CONSULTATION Name: ARIS CATHERINE Room: [address] IN [place].#: [id number] Admission: 10/04/20 Attend Phys: Tera Mcintosh Discharge: Date of : 42 Report #: [id number] 10. Chronic kidney disease. 11. Urinary tract infection. <ELECTRONICALLY SIGNED> By: Osbaldo Rogers MD, FACC 10/12/20 1712 1004 [id number] Rogers MD, FACAlen /nt
[2020-10-12 19:36] VITALS: BP 144/70
[2020-10-12 23:46] VITALS: BP 158/87
[2020-10-13 03:49] VITALS: BP 143/68
[2020-10-13 04:27] LABS: HEMATOCRIT 23.6 % (37.0-47.0); HEMOGLOBIN 7.3 gm/dL (12.0-15.0); MCHC 31.1 g/dL (28.0-37.0); MCV 93.3 fL (80.0-100.0); MPV 6.8 fl. (7.2-11.1); RBC 2.53 mil/uL (4.20-5.00); WBC 11.2 thou/uL (4.0-11.0)
[2020-10-13 04:40] LABS: CALCIUM 8.6 mg/dL (8.5-10.1); CREATININE 1.5 mg/dL (0.6-1.3); POTASSIUM 3.9 mmol/L (3.5-5.1)
--- NOTE | 2020-10-13 04:46 | NUR ---
PT A&OX4, VSS ON 2L O2, UP WITH ASSIST. IV SALINE LOCKED. SR WIT PVC'S ON TELE MONITOR. PT REPOSTIONED Q2H. PRN PAIN AND ANTIEMETIC MEDS REQUESTED AND GIVEN ODERED. PT SLEEPING WELL, WILL CONTINUE TO MONITOR.
[2020-10-13 08:00] VITALS: BP 138/81
[2020-10-13 12:00] VITALS: BP 136/84
--- NOTE | 2020-10-13 12:48 | NUR ---
0815: IV INFILTRATE AT THIS TIME. PATIENT IS KNOW FOR IV'S NOT TO LAST LONG. DR. HAN NOTIFIED, WAITING TO SEE IF IV CAN BE DC'D OR NEEDS TO BE RESTARTED. NO NEW ORDERS. WILL CONTINUE TO MONITOR.
--- NOTE | 2020-10-13 15:09 | NUR ---
PLAN OF CARE: PHYSICIAN INFORMS THAT THE PT IS NOT MEDICALLY STABLE FOR D/C AT THIS TIME. PT REMAINS ON 2L O2 AND DID NOT HAVE HOME OXYGEN PRIOR TO ADMIT. PT NORMALLY INDEPENDENT WITH ADL'S. PT HAD PREVIOUSLY PLANNED TO START HH WITH [facility] AT D/C. PT'S D/C HH ORDERS WILL NEED TO BE FAXED TO [facility] AT D/C. CM WILL REMAIN AVAILALE TO ASSIST AND FOLLOW NEEDED.
[2020-10-13 17:01] LABS: BF RBC <1000 /mm3; TOTAL CELL COUNT 157 /mm3
[2020-10-13 17:09] LABS: CLARITY CLEAR; TOTAL VOLUME 960 ml
[2020-10-13 17:10] LABS: SOURCE PLEURAL FLUID
--- NOTE | 2020-10-13 17:12 | NUR ---
PATIENT TRANSFERED TO [facility] AT THIS TIME VIA WHEELCHAIR ACCOMPANIED BY NURSING STAFF.
[2020-10-13 17:36] LABS: BF LYMPHOCYTES 59 %; BF MONOCYTES 19 %; BF POLYS 22 %; BF TISSUE 6 /100 WBC
[2020-10-13 19:30] VITALS: BP 128/70
--- NOTE | 2020-10-14 07:53 | NUR ---
PT SLEPT WELL AFTER RECEIVING PAIN AND NAUSEA MED. O2 2L NC. NO IV ACCESS. PT UP WITH SBA TO BSC AND HAD BM OVERNIGHT. BLE EDEMA. BANDAID CDI TO R BACK THORACENTESIS SITE. PT TURNED AND REPOSITIONED Q2 HOURS AND PRN FOR SKIN CARE AND COMFORT. ABLE TO USE CALL LITE AND MAKE NEEDS KNOWN.
[2020-10-14 08:00] VITALS: BP 148/83
[2020-10-14 12:16] LABS: ABSOLUTE BASOPHILS 0.1 thou/uL (0.0-0.2); ABSOLUTE EOSINOPHILS 0.2 thou/uL (0.0-0.7); ABSOLUTE LYMPHOCYTES 1.2 thou/uL (0.8-5.3); ABSOLUTE MONOCYTES 0.7 thou/uL (0.0-1.2); BASOPHILS 0.9 %; HEMOGLOBIN 7.9 gm/dL (12.0-15.0); LYMPHOCYTES 13.3 %; MCH 28.5 pg (26.0-34.0); MCHC 30.2 g/dL (28.0-37.0); MCV 94.2 fL (80.0-100.0); MONOCYTES 7.6 %; MPV 7.3 fl. (7.2-11.1); NUCLEATED RBCS 0 /100WBC; PLATELET COUNT* 365 thou/uL (150-400); POLYS 76.2 %; RBC 2.76 mil/uL (4.20-5.00); RDW-CV 20.5 % (10.5-14.5); WBC 9.2 thou/uL (4.0-11.0)
[2020-10-14 12:23] LABS: ALBUMIN 1.9 g/dL (3.4-5.0); CALCIUM 8.6 mg/dL (8.5-10.1); CREATININE 1.7 mg/dL (0.6-1.3); POTASSIUM 4.3 mmol/L (3.5-5.1); TOTAL BILIRUBIN 0.1 mg/dL (<0.1-1.0); TOTAL PROTEIN 5.8 g/dL (6.4-8.2)
[2020-10-14 15:08] LABS: BODY FLUID PROTEIN 1.5 g/dL (())
[2020-10-14 16:11] LABS: HEMATOCRIT 26.8 % (37.0-47.0); HEMOGLOBIN 8.4 gm/dL (12.0-15.0); MCH 29.2 pg (26.0-34.0); MCHC 31.3 g/dL (28.0-37.0); MCV 93.1 fL (80.0-100.0); MPV 6.6 fl. (7.2-11.1); RBC 2.88 mil/uL (4.20-5.00); RDW-CV 19.8 % (10.5-14.5)
--- NOTE | 2020-10-14 16:12 | NUR ---
Anticipate dc in a few days. Anemia work pending. Pt on 2L o2. Therapies to see. Goal continues to be home with HH.
--- NOTE | 2020-10-14 18:32 | NUR ---
PT HAS BEEN OUT OF BED WITH PT AND WORKED WITH OT TODAY. PT CONTINUES TO HAVE PAIN AND IS TAKING HYDROCODONE 2 TABS EVERY 4 HOURS, PT IS ALSO NEEDING NAUSEA MEDICATIONS SHE HAS TAKEN 2 TABS TODAY, FOR NAUSEA. NO EMESIS NOTED. PT TOLERATING PO FOOD AND FLUIDS. PT WILL BE NPO AFTER 24OO FOR A EGD IN THE AM. WILL CONTINUE TO MONITOR PLAN OF CARE.
[2020-10-14 21:00] VITALS: BP 150/87
[2020-10-15 05:12] LABS: ABSOLUTE BASOPHILS 0.1 thou/uL (0.0-0.2); ABSOLUTE EOSINOPHILS 0.2 thou/uL (0.0-0.7); ABSOLUTE LYMPHOCYTES 1.3 thou/uL (0.8-5.3); ABSOLUTE MONOCYTES 0.9 thou/uL (0.0-1.2); ABSOLUTE NEUTROPHILS 8.3 thou/uL (1.6-8.1); HEMATOCRIT 25.4 % (37.0-47.0); HEMOGLOBIN 7.9 gm/dL (12.0-15.0); LYMPHOCYTES 12.1 %; MCH 28.7 pg (26.0-34.0); MCHC 31.1 g/dL (28.0-37.0); MCV 92.2 fL (80.0-100.0); MONOCYTES 8.1 %; MPV 7.2 fl. (7.2-11.1); NUCLEATED RBCS 0 /100WBC; PLATELET COUNT* 368 thou/uL (150-400); POLYS 76.8 %; RBC 2.75 mil/uL (4.20-5.00); RDW-CV 20.3 % (10.5-14.5); WBC 10.8 thou/uL (4.0-11.0)
[2020-10-15 05:21] LABS: CALCIUM 8.5 mg/dL (8.5-10.1); CREATININE 1.7 mg/dL (0.6-1.3); POTASSIUM 4.4 mmol/L (3.5-5.1); TOTAL BILIRUBIN 0.1 mg/dL (<0.1-1.0)
[2020-10-15 05:23] LABS: PREALBUMIN 14.6 mg/dL (18.0-35.7)
[2020-10-15 05:50] LABS: PLATELET ESTIMATE ADEQUATE; POLYCHROMASIA Occasional
[2020-10-15 05:51] LABS: ANISOCYTOSIS 2+; MACROCYTES Occasional; OVALOCYTES Occasional; POIKILOCYTOSIS 1+
[2020-10-15 06:37] LABS: ESR (SEDRATE) 80 mm/hr (0-30)
--- NOTE | 2020-10-15 08:17 | NUR ---
Alert and oriented x 4. She is up with assist to the bedside commode. She did take pain meds at bedtime. She is NPO now, she had some coffee this am. New IV started 20G right wrist, it's saline locked. She has slept well.
[2020-10-15 08:44] VITALS: BP 161/85
[2020-10-15 12:07] LABS: IgA 144 mg/dL (64-422); IgG 572 mg/dL (586-1602); IgM 1011 mg/dL (26-217)
--- NOTE | 2020-10-15 12:07 | PATH ---
[address] [address] PATHOLOGY RPT PROCEDURE Name: ARIS CATHERINE Room: [address] IN [facility]#: [id number] Admission: 10/04/20 Date of : 42 Discharge: Report #: [id number] Path Case #: [id number] Note [facility] Accession Number: [id number] TESTS RESULT FLAG UNITS REF RANGE LAB Clinician Provided Cytology Information No. of containers..01 Other (Miscellaneous) Source: 01 RIGHT THORA DIAGNOSIS: 02 RIGHT THORACENTESIS: NEGATIVE FOR MALIGNANT CELLS. FEW MESOTHELIAL CELLS AND INFLAMMATORY CELLS ARE PRESENT. THIS INTERPRETATION INCLUDES EVALUATION OF A CELL BLOCK. Signed out by: 02 Terence Caldera MD, Pathologist NPI- [id number] Performed by: Hans Lauren, [employer] ([facility]) Gross description: 01 35ML, CLEAR YELLOW, 1 TP 1 CB /LCS 10/14/2020 0127 Local FLAG LEGEND: L-Low Normal,H-High Normal,LL-Alert Low,HH-Alert High <-Panic Low,>-Panic High,A-Abnormal,AA-Critical Abnormal Performed at: [address] [place] [address] Dipak Anderson MD, [address] [place] [address] [address] [facility], [place] [address] Terence Caldera MD, Specimen Comment: A courtesy copy of this report has been sent to [phone] Specimen Comment: Report sent to DR. YOON Specimen Comment: A duplicate report has been generated due to demographic updates. Performed at: [address], [place], [place] [id number] MD Dipak Anderson MD Phone: [phone]
--- NOTE | 2020-10-15 13:17 | NUR ---
Anticipate dc tomorrow. Finish GI work up.?need for left thora. PT to continue to work with Pt. Goal is home with [facility].
[2020-10-15 20:00] VITALS: BP 137/68
[2020-10-16] VITALS (7 sets, daily range): BP systolic 141–191; BP diastolic 70–90
--- NOTE | 2020-10-16 04:44 | NUR ---
PATIENT HAS REMAINED ALERT AND ORIENTED X 4 THROUGHOUT THE SHIFT AND RESTING QUIETLY ON HOURLY ROUNDS. UP TO BSC WITH CGA. O2 AT AT 2L/MIN. VITAL SIGNS STABLE. SACRUM PINK WITH SCANT SLOUGHED OFF SKIN AREAS BUT DRY. JAZZY-CARE WITH Z-GUARD PROVIDED. ENC REPOSTIONING Q2H. POSSIBLE THORACENTESIS TODAY. MEDICATED FOR PAIN X 2 FOR CHRONIC NECK AND SHOULDER PAIN. MEDICATED FOR NAUSEA X 1 TO GOOD EFFECT. FALL PRECAUTIONS IN PLACE. CONTINUE TO MONITOR.
[2020-10-16 07:37] LABS: ABSOLUTE BASOPHILS 0.1 thou/uL (0.0-0.2); ABSOLUTE EOSINOPHILS 0.3 thou/uL (0.0-0.7); ABSOLUTE LYMPHOCYTES 0.9 thou/uL (0.8-5.3); ABSOLUTE MONOCYTES 0.7 thou/uL (0.0-1.2); ABSOLUTE NEUTROPHILS 10.1 thou/uL (1.6-8.1); EOSINOPHILS 2.1 %; HEMATOCRIT 24.6 % (37.0-47.0); HEMOGLOBIN 7.8 gm/dL (12.0-15.0); LYMPHOCYTES 7.3 %; MCHC 31.6 g/dL (28.0-37.0); MCV 91.8 fL (80.0-100.0); NUCLEATED RBCS 0 /100WBC; PLATELET COUNT* 340 thou/uL (150-400); POLYS 83.6 %; RBC 2.68 mil/uL (4.20-5.00); RDW-CV 20.6 % (10.5-14.5); WBC 12.1 thou/uL (4.0-11.0)
[2020-10-16 07:46] LABS: CALCIUM 8.6 mg/dL (8.5-10.1); CREATININE 1.7 mg/dL (0.6-1.3); POTASSIUM 4.5 mmol/L (3.5-5.1); TOTAL BILIRUBIN 0.1 mg/dL (<0.1-1.0)
[2020-10-16] MEDS ORDERED: COZAAR 50 MG TA50 M1 PO (13:30)
[2020-10-16] MEDS ORDERED: PROTONIX40 M4 PO (13:31)
[2020-10-16] MEDS ORDERED: DEMADEX20 MG PO (13:33)
--- NOTE | 2020-10-16 13:53 | NUR ---
Pt discharging to home today, faxed HH orders to [facility]
[2020-10-16 13:54] LABS: CLARITY CLEAR; SOURCE THORACENTESIS; TOTAL VOLUME 485 ml
[2020-10-16 13:55] LABS: BF RBC 254 /mm3; TOTAL CELL COUNT 402 /mm3
[2020-10-16 14:17] LABS: BF LYMPHOCYTES 78 %; BF POLYS 22 %; BF TISSUE 15 /100 WBC
--- NOTE | 2020-10-16 14:47 | NUR ---
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 MAGALY SOLIST
[2020-10-16 16:06] LABS: GLOBULIN TOTAL 2.9 g/dL (2.2-3.9); M-SPIKE Note: g/dL (Not Observed)
--- NOTE | 2020-10-16 17:01 | NUR ---
PT REMAINED ALERT AND ORIENTED. PT RESTING IN BED. PAIN AND NAUSEA MEDS GIVEN ORDERED. FALL RISK PRECAUTIONS IN PLACE. NO O2 NEEDS AT HOME. HOURLY ROUNDING COMPLETED.
[2020-10-16 18:06] LABS: BODY FLUID PH 7.5 (Not Estab.)
[2020-10-17 04:43] VITALS: BP 140/74
--- NOTE | 2020-10-17 05:14 | NUR ---
PT LYING IN BED READING THIS PM SHIFT, SHE HAS AMBULATED TO THE TOILET SEVERAL TIMES WITH HELP OF WALKER AND STANDBY. SHE HAS REQUESTED PAIN MEDS EVERY 4 HRS FOR GENERALIZED PAIN. PT HAS GENERAL EDEMA WITH LEGS 1+ PITTING. PT HAS BEEN ON RA THIS SHIFT, VSS. SHE IS ANXIOUS TO DISCHARGE THIS MORNING. BED ALARM ON FOR SAFETY, CALL LIGHT WITHIN REACH
[2020-10-17 07:20] VITALS: BP 153/78
[2020-10-17 07:53] VITALS: BP 153/78
--- NOTE | 2020-10-17 10:19 | NUR ---
PT GIVEN DISCHARGE INFORMATION, CARE NOTES, AND PRESCRIPTIONS SENT TO PHARMACY. PT BELONGINGS GATHERED. PT LEFT BEFORE WOUND PICTURE COULD BE TAKEN. FALL RISK PRECAUTIONS IN PLACE. HOURLY ROUNDING COMPLETED. PT LEFT TO HOME WITH HOME HEALTH.
[2020-10-18 12:06] LABS: BODY FLUID PROTEIN 1.1 g/dL (())
[2020-10-19 12:29] LABS: SOURCE THORACENTESIS
[2020-10-19 12:30] LABS: SOURCE THORACENTESIS
[2020-10-19 17:06] LABS: BODY FLUID PH 7.5 (Not Estab.)
--- NOTE | 2020-10-19 17:06 | PATH ---
[address] [address] PATHOLOGY RPT PROCEDURE Name: ARIS CATHERINE Room: [address]#: [id number] Admission: 10/04/20 Date of : 42 Discharge: 10/17/20 Report #: [id number] Path Case #: [id number] Note [facility] Accession Number: [id number] TESTS RESULT FLAG UNITS REF RANGE LAB Clinician Provided Cytology Information No. of containers..01 Other (Miscellaneous) Source: LEFT PLEURAL FLUID DIAGNOSIS: 02 LEFT PLEURAL FLUID NEGATIVE FOR MALIGNANT CELLS. REACTIVE MESOTHELIAL CELLS AND PREDOMINANTLY LYMPHOCYTES PRESENT. Signed out by: 02 Terence Caldera MD, Pathologist NPI- [id number] Performed by: 01 Mami Carey, [employer] ([facility]) Gross description: 01 10ML, CLEAR PALE YELL, 1 TP 1CB /LCS 10/17/2020 0451 Local FLAG LEGEND: L-Low Normal,H-High Normal,LL-Alert Low,HH-Alert High <-Panic Low,>-Panic High,A-Abnormal,AA-Critical Abnormal Performed at: [address] [place] [address] Dipak Anderson MD, [address] [place] [address] [address] [place] [address] Terence Caldera MD, Performed at: [address], [place], [place] [id number] MD Dipak Anderson MD Phone: [phone]
--- NOTE | 2020-10-19 18:06 | PATH ---
[address] [address] PATHOLOGY RPT PROCEDURE Name: FLORINPAIGE Room: [address] IN .R.#: [id number] Admission: 10/04/20 Date of : 42 Discharge: 10/17/20 Report #: [id number] Path Case #: [id number] [facility] Accession Number: [id number] . 01 Material submitted: . PART A: duodenum - BIOPSY OF EROSIVE DUODENOSIS PART B: stomach - ANTRAL BIOPSY TO RULE OUT H. PYLORI. Modifiers: ANTRUM . 01 Clinical history: . EGD IN OR DUODENAL EROSIONS PYELONEPHRITIS . 02 Diagnosis: A. Biopsy of erosive duodenitis: - Severe nonspecific active duodenitis, negative for granulomas, viral inclusions and dysplasia/adenomatous change. . B. Antral biopsy: - Moderate nonspecific chronic antral gastritis, negative for Helicobacter pylori organisms, granulomas and dysplasia. . (MEÑO:mmcarlo; 10/19/2020) [facility] 10/19/2020 1023 Local . 02 Comment: Special stain: H. pylori immuno on B. . (MEÑO:mml; 10/19/2020) . 02 Electronically signed: . Terence Caldera MD, Pathologist NPI- [id number] . 01 Gross description: . A. The specimen is received in formalin, labeled "Florin, Paige, erosive duodenitis" and consists of a pale oro tissue measuring 0.3 x 0.2 x 0.2 cm which is submitted in toto in A1. . B. The specimen is received in formalin, labeled "Paige Catherine, antrum biopsy R/O H. pylori" and consists of a pale oro tissue measuring 0.6 x 0.2 x 0.2 cm which is submitted in toto in B1. (AMBLER; 10/16/2020) DKA/DKA 10/19/2020 1145 Local . 02 Pathologist provided ICD-10: K29.60, K29.50 . 02 [place] [address] PATHOLOGY RPT PROCEDURE Name: PAIGE CATHERINE Room: [address] IN M.R.#: [id number] Admission: 10/04/20 Date of : 42 Discharge: 10/17/20 Report #: [id number] Path Case #: [id number] Specimen Comment: A courtesy copy of this report has been sent to [phone] Specimen Comment: [phone] Specimen Comment: Report sent to Specimen Comment: Report sent to / DR YOON Performed at: [address], [place] [id number] MD Dipak Anderson MD Phone: [phone] Performed at: 02 [facility] [address], [place], [place] [id number] MD Terence Caldera MD Phone: [phone]
== END 2020-10-17 10:23 | disposition home health service (06) | DRG 871 ==
LOC: M.ERS 06:33 → M.TBA-ER 11:44 → M.2W 11:44 → M.3W 10-06 20:45 → M.ORTHSURG 10-10 23:06 → M.2W 10-11 21:08 → M.3W 10-13 17:12
PROVIDERS: Emergency Medicine; Internal Medicine; Internal Medicine Cardiovascular Disease; Internal Medicine Gastroenterology; ADMIT Internal Medicine; ATTEND Internal Medicine
PROC: 0W993ZZ Drainage of Right Pleural Cavity, Percutaneous Approach (ICD-10-PCS; principal; 2020-10-13)
PROC: 0DB68ZX Excision of Stomach, Via Natural or Artificial Opening Endoscopic, Diagnostic (ICD-10-PCS; 2020-10-15)
PROC: 0W9B3ZZ Drainage of Left Pleural Cavity, Percutaneous Approach (ICD-10-PCS; 2020-10-16)
DX: A41.52 Sepsis due to Pseudomonas (principal); N17.0 Acute kidney failure with tubular necrosis; I50.23 Acute on chronic systolic (congestive) heart failure; K29.41 Chronic atrophic gastritis with bleeding; K29.81 Duodenitis with bleeding; N39.0 Urinary tract infection, site not specified; J98.11 Atelectasis; I42.9 Cardiomyopathy, unspecified; J90 Pleural effusion, not elsewhere classified; I13.0 Hypertensive heart and chronic kidney disease with heart failure and stage 1 through stage 4 chronic kidney disease, or unspecified chronic kidney disease; I16.0 Hypertensive urgency; D64.9 Anemia, unspecified; E78.5 Hyperlipidemia, unspecified; N18.9 Chronic kidney disease, unspecified; I25.10 Atherosclerotic heart disease of native coronary artery without angina pectoris; N20.0 Calculus of kidney; B96.5 Pseudomonas (aeruginosa) (mallei) (pseudomallei) as the cause of diseases classified elsewhere; G89.29 Other chronic pain; M54.9 Dorsalgia, unspecified; M54.2 Cervicalgia; I70.0 Atherosclerosis of aorta; K21.9 Gastro-esophageal reflux disease without esophagitis; Z20.822 Contact with and (suspected) exposure to COVID-19; Z95.5 Presence of coronary angioplasty implant and graft; Z90.13 Acquired absence of bilateral breasts and nipples; Z85.3 Personal history of malignant neoplasm of breast; Z90.49 Acquired absence of other specified parts of digestive tract; Z79.01 Long term (current) use of anticoagulants; Z90.710 Acquired absence of both cervix and uterus; Z79.899 Other long term (current) drug therapy; Z87.891 Personal history of nicotine dependence; Z95.1 Presence of aortocoronary bypass graft; Z88.5 Allergy status to narcotic agent

== ENCOUNTER 2020-12-26 13:36 | Inpatient (IN) | payer OTHER ==
[~2020-12-26] VITALS: Ht 139.7 cm; Wt 45.4 kg
--- NOTE | ~2020-12-26 | EMS ---
[address] [address] EMS Patient Care Report Name: ARIS CATHERINE Room: [address] [facility]#: [id number] Admission: 12/26/20 Attend Phys: Tera Mcintosh Discharge: Date of : 42 Report #: [id number] THIS REPORT FOR: //name// Report Transmitted: 12/26/2020 15:50 EMS Care Summary [place] [facility] Incident 21-1050 @ 12/26/2020 12:46 Incident Location [address] [place] [address] Patient ARIS CATHERINE Female, 80 Years 1940 Patient Address [address] [place] [address] Patient History Congestive Heart Failure (CHF),Mastectomy, Patient Allergies Morphine, Chief Complaint Shoulder Pain Disposition Transported No Lights/[place] Dispatch Reason Chest Pain (Non-Traumatic) Transported To [facility] Narrative Ems was toned to the address stated for a 80 year old female who was having left arm pain and was SOA. Upon arrival to the scene, EMS is met at the door by the patients niece who [address] [address] EMS Patient Care Report Name: ARIS CATHERINE Room: [address] IN [facility]#: [id number] Admission: 12/26/20 Attend Phys: Tera Mcintosh Discharge: Date of : 42 Report #: [id number] states "she's just not acting herself and had some shoulder pain that started last night and that pain came back today." Ems is directed to the door that leads to a small well kept apartment where the patient is using a walker to meet EMS. The patient walks to the middle of the room and sits on her walker to be evaluated. Ems obtains vital signs as well as obtains a 12 lead ECG on scene, patient is alert and oriented and has a GCS of 15, Patient appears to be slurring her words, EMS asks family if that was new to which they said "yes that's new." A [place] stroke scale is performed with negative result, BGA of 150 is also obtained on scene. EMS advises the patient that she should be evaluated at an ER, the patient states " I think that would be best." Patient states that she would like to go to [facility]. The stretcher is brought into the apartment and the patient is able to stand, pivot, and sit on the stretcher with little assistance from EMS and is secured via seatbelts and taken to the awaiting ambulance. Patient is placed back on the monitor and a non emergent transport to [facility] begins. While enroute to [facility] vital signs are continuously monitored. Patient becomes hypotensive, and slightly Bradycardic and remains that way until reaching the hospital, approximately 5 mins prior to arrival the patients blood pressure measures within normal ranges again. History of multiple cardiac events as well as a double mastectomy and gallbladder removal is obtained enroute as well. Patient take multiple medications however can only remember metoprolol. Patient has an abnormal gait to the right, Patient states that that's a tendency lately. Patient was unable to be clear as to when that started. [facility] is contacted via radio with no questions or orders received. Med 1 arrives at [facility] without incident. Upon arrival to [facility], verbal report is given to Isabella Morley R.N and the patient is left in the care of staff in ER bed 17. [facility] *End of report* Osbaldo Gómez [id number] Initial Vitals @13:28P: 56,SpO2: 97, @13:23P: 54,SpO2: 98, @12:59 @13:18P: 55,SpO2: 99, @12:58P: 58,SpO2: 98, @13:13P: 53,SpO2: 99, @12:58 @12:56P: 59,SpO2: 98, @13:03P: 61,SpO2: 97, @13:09P: 60,BP: 145/123,SpO2: 85, @13:08P: 55,SpO2: 98, @12:54P: 49,R: 15,BP: 122/61,Pain: 6/10,GCS: 15,Glucose: 150,SpO2: 81,Revised [facility] [address] [place] [address] EMS Patient Care Report Name: ARIS CATHERINE Michelle Room: [address] [facility]#: [id number] Admission: 12/26/20 Attend Phys: Tera Mcintosh Discharge: Date of : [birth year] Report #: [id number] Trauma: 12, @13:15P: 55,R: 15,BP: 87/54,Pain: 6/10,GCS: 15,SpO2: 98,Revised Trauma: 11, @13:21P: 55,R: 15,BP: 88/53,Pain: 6/10,GCS: 15,SpO2: 98,Revised Trauma: 11, @13:24P: 54,R: 15,BP: 101/62,Pain: 6/10,GCS: 15,SpO2: 99,Revised Trauma: 12, Impression Chest Pain / Discomfort Procedures @12:5812-Lead ECGResponse: UnchangedSucceeded@12:5912-Lead ECGResponse: UnchangedSucceeded Timeline 12:44,Call Received 12:46,Dispatched 12:49,En Route 12:50,On Scene 12:51,At Patient 12:54,BP: 122/61 M,PULSE: 49,RR: 15 R,SPO2: 81 Ox,ETCO2: ,B,PAIN: 6,GCS: 15, 12:56,BP: / M,PULSE: 59,RR: R,SPO2: 98 Ox,ETCO2: ,BG: ,PAIN: ,GCS: , 12:58,BP: / M,PULSE: 58,RR: R,SPO2: 98 Ox,ETCO2: ,BG: ,PAIN: ,GCS: , 12:58,12-Lead ECG,Response: UnchangedSucceeded, 12:58,BP: / M,PULSE: ,RR: R,SPO2: Ox,ETCO2: ,BG: ,PAIN: ,GCS: , 12:59,12-Lead ECG,Response: UnchangedSucceeded, 12:59,BP: / M,PULSE: ,RR: R,SPO2: Ox,ETCO2: ,BG: ,PAIN: ,GCS: , 13:03,BP: / M,PULSE: 61,RR: R,SPO2: 97 Ox,ETCO2: ,BG: ,PAIN: ,GCS: , 13:08,Depart Scene 13:08,BP: / M,PULSE: 55,RR: R,SPO2: 98 Ox,ETCO2: ,BG: ,PAIN: ,GCS: , 13:09,BP: 145/123 M,PULSE: 60,RR: R,SPO2: 85 Ox,ETCO2: ,BG: ,PAIN: ,GCS: , 13:13,BP: / M,PULSE: 53,RR: R,SPO2: 99 Ox,ETCO2: ,BG: ,PAIN: ,GCS: , 13:15,BP: 87/54 M,PULSE: 55,RR: 15 R,SPO2: 98 Ox,ETCO2: ,BG: ,PAIN: 6,GCS: 15, 13:18,BP: / M,PULSE: 55,RR: R,SPO2: 99 Ox,ETCO2: ,BG: ,PAIN: ,GCS: , 13:21,BP: 88/53 M,PULSE: 55,RR: 15 R,SPO2: 98 Ox,ETCO2: ,BG: ,PAIN: 6,GCS: 15, 13:23,BP: / M,PULSE: 54,RR: R,SPO2: 98 Ox,ETCO2: ,BG: ,PAIN: ,GCS: , 13:24,BP: 101/62 M,PULSE: 54,RR: 15 R,SPO2: 99 Ox,ETCO2: ,BG: ,PAIN: 6,GCS: 15, 13:28,BP: / M,PULSE: 56,RR: R,SPO2: 97 Ox,ETCO2: ,BG: ,PAIN: ,GCS: , 13:31,At Destination 14:09,Call Closed 14:09,In District Disclaimer v1.1 Copyright 2020 [employer] This EMS Care Summary contains data elements from the applicable legal record (which may be displayed differently). It [place] [address] EMS Patient Care Report Name: ARIS CATHERINE Room: [address] IN [facility].#: [id number] Admission: 12/26/20 Attend Phys: Tera Mcintosh Discharge: Date of : 42 Report #: [id number] information for the following purposes: continuity of care, clinical quality, and state data reporting. The complete legal record is available to ED staff and administrators of the receiving hospital in [facility]'s Patient Tracker. All data is provided "as is."
[~2020-12-26 13:36] MED LIST: CEPHALEXIN500 MG PO; COZAAR 50 MG TA50 M1 PO; DEMADEX20 MG PO; HYDROCODON-ACE1 EAC7 PO; LIPITOR10 MG PO; PLAVIX 75 MG TA75 MG PO; PROTONIX40 M4 PO; TOPROL XL25 MG PO; ZOFRAN ODT4 MG PO
[2020-12-26 13:38] VITALS: BP 120/61
[2020-12-26 14:27] LABS: ABSOLUTE EOSINOPHILS 0.5 thou/uL (0.0-0.7); ABSOLUTE LYMPHOCYTES 1.4 thou/uL (0.8-5.3); ABSOLUTE MONOCYTES 0.8 thou/uL (0.0-1.2); ABSOLUTE NEUTROPHILS 6.2 thou/uL (1.6-8.1); BASOPHILS 0.3 %; EOSINOPHILS 5.7 %; HEMATOCRIT 27.4 % (37.0-47.0); HEMOGLOBIN 8.8 gm/dL (12.0-15.0); LYMPHOCYTES 15.4 %; MCH 29.6 pg (26.0-34.0); MCV 92.4 fL (80.0-100.0); MONOCYTES 8.7 %; MPV 6.5 fl. (7.2-11.1); NUCLEATED RBCS 0 /100WBC; PLATELET COUNT* 263 thou/uL (150-400); POLYS 69.9 %; RBC 2.96 mil/uL (4.20-5.00); RDW-CV 17.1 % (10.5-14.5); WBC 8.9 thou/uL (4.0-11.0)
[2020-12-26 14:38] LABS: CALCIUM 9.7 mg/dL (8.5-10.1); CREATININE 2.6 mg/dL (0.6-1.3); POTASSIUM 5.2 mmol/L (3.5-5.1)
[2020-12-26 14:48] LABS: ALBUMIN 2.8 g/dL (3.4-5.0); MAGNESIUM 2.8 mg/dL (1.8-2.4); TOTAL BILIRUBIN 0.2 mg/dL (<0.1-1.0); TOTAL PROTEIN 6.9 g/dL (6.4-8.2)
[2020-12-26 16:27] VITALS: BP 96/51
[2020-12-26] MEDS ORDERED: TRAZODONE HCL50 MG PO (17:10)
[2020-12-26] MEDS ORDERED: CLONIDINE HCL0.3 M3 PO (17:11)
[2020-12-26] MEDS ORDERED: HYDROCHLOROTHIA25 M1 PO (17:11)
[2020-12-26] MEDS ORDERED: CVS SENNA PLUS1 EACH PO (17:11)
[2020-12-26] MEDS ORDERED: TOPROL XL25 MG PO (17:15)
[2020-12-26] MEDS ORDERED: COZAAR 25 MG TA25 M1 PO (17:16)
[2020-12-26 17:17] VITALS: BP 110/57
[2020-12-26 20:00] VITALS: BP 125/60
[2020-12-27 00:18] VITALS: BP 114/52
[2020-12-27 04:00] VITALS: BP 94/43
[2020-12-27 07:50] VITALS: BP 118/70
[2020-12-27] MEDS ORDERED: ATORVASTATIN CA20 MG PO (09:20)
[2020-12-27 09:24] LABS: CALCIUM 8.9 mg/dL (8.5-10.1); CREATININE 2.3 mg/dL (0.6-1.3); POTASSIUM 4.8 mmol/L (3.5-5.1)
--- NOTE | 2020-12-27 10:21 | EKG ---
[place] [address] ELECTROCARDIOGRAM REPORT Name: FLORINARIS Room: [address] ADM IN [facility].#: [id number] Admission: 12/26/20 Attend Phys: Destin Rogel Discharge: Date of : 42 Date of Service: 12/26/20 1345 Report #: [id number] THIS REPORT FOR: //name// [facility] ED Test Date: 2020-12-26 Test Time: 13:45:54 Pat Name: ARIS CATHERINE Department: Room: [facility] Gender: F Silverer: PUNEET : 1940 Requested By: Scott Palencia Order Number: [id number] MD: Osbaldo Rogers Measurements Intervals [place] Rate: 55 P: -30 CA: 178 QRS: 26 QRSD: 121 T: 47 QT: 430 QTc: 412 Interpretive Statements Sinus bradycardia poor r wave progression nonspecific t wave changes Compared to ECG 10/11/2020 12:49:47 Ectopic atrial tachycardia, multifocal no longer present Electronically Signed On 12-27-2020 10:21:08 CDT by Osbaldo Rogers [email or web address] <ELECTRONICALLY SIGNED> By: Osbaldo Rogers MD, FACC 12/27/20 1021 1345 1345 Osbaldo Rogers MD, FACC /EPI
[2020-12-27 11:04] VITALS: BP 118/70
== END 2020-12-27 12:30 | disposition home or self-care (01) | DRG 291 ==
LOC: M.ERS 13:36 → M.TBA-ER 15:06 → M.2W 16:48
PROVIDERS: Emergency Medicine Emergency Medical Services; Family Medicine; ADMIT Internal Medicine; ATTEND Internal Medicine
DX: I13.0 Hypertensive heart and chronic kidney disease with heart failure and stage 1 through stage 4 chronic kidney disease, or unspecified chronic kidney disease (principal); I50.23 Acute on chronic systolic (congestive) heart failure; E87.1 Hypo-osmolality and hyponatremia; R47.81 Slurred speech; I42.9 Cardiomyopathy, unspecified; E87.5 Hyperkalemia; I25.10 Atherosclerotic heart disease of native coronary artery without angina pectoris; N18.2 Chronic kidney disease, stage 2 (mild); Z88.8 Allergy status to other drugs, medicaments and biological substances; Z90.49 Acquired absence of other specified parts of digestive tract; T50.995A Adverse effect of other drugs, medicaments and biological substances, initial encounter; Z20.822 Contact with and (suspected) exposure to COVID-19; D64.89 Other specified anemias; Z85.3 Personal history of malignant neoplasm of breast; E78.5 Hyperlipidemia, unspecified; Z88.5 Allergy status to narcotic agent

== ENCOUNTER 2021-03-04 11:32 | Inpatient (IN) | payer OTHER ==
[~2021-03-04] VITALS: Ht 139.7 cm; Wt 45.4 kg
--- NOTE | ~2021-03-04 | EMS ---
[facility] [address] [facility] [place] [address] EMS Patient Care Report Name: ARIS CATHERINE Room: [address] IN [facility]#: [id number] Admission: 03/04/21 Attend Phys: Tera Moody Discharge: Date of : 42 Report #: [id number] THIS REPORT FOR: //name// Report Transmitted: 03/04/2021 20:19 EMS Care Summary [place] [facility] Incident 21-1298 @ 03/04/2021 10:29 Incident Location [address] [place] [address] Patient ARIS CATHERINE Female, 80 Years 1940 Patient Address [address] [place] [address] Patient History Atrial Fibrillation, Patient Allergies No known allergies, Patient Medications Unknown, Chief Complaint Generalized weakness Disposition Transported No Lights/[place] Dispatch Reason Sick Person Transported To [facility] Narrative Dispatched to a residence for 80y/o female who is weak. Upon arrival pt. was sitting on a walker seat, A&Ox4, and c/o general weakness that worsens with standing. Pt. stated that she has felt weak for approx. 1 week and has had several falls during that time. Pt. denies falling today. Pt. stated that she [facility] [address] [place] [id number] EMS Patient Care Report Name: ARIS CATHERINE Room: [address] IN ..#: [id number] Admission: 03/04/21 Attend Phys: Tera Moody Discharge: Date of : 42 Report #: [id number] hit the back of her head yesterday and a small knot is palpable. BP was checked both sitting and standing with a small drop when standing. 12-lead EKG showed A-fib with PVCs and artifact. IV was started then 500ml NS bolus given en route with some improvement to BP. Pt. also stated that she didn't feel as lightheaded post bolus. Pt. was transported to [place] for emergency services. Initial Vitals @10:50P: 90,R: 20,BP: 88/55,GCS: 15,SpO2: 98,Revised Trauma: 11, @10:41 @11:05P: 88,R: 20,BP: 101/54,GCS: 15,SpO2: 97,Revised Trauma: 12, @11:18 @10:35P: 70,R: 20,BP: 90/58,Pain: 0/10,GCS: 15,Glucose: 144,SpO2: 97,Revised Trauma: 12, @10:37BP: 85/52, Impression Generalized Weakness Procedures @10:50 IV Bolus - Normal Saline (.9% NaCl) 500cc (18 ga) Site: Antecubital-Left Response: ImprovedSucceeded @10:41 12-Lead ECG Response: UnchangedSucceeded @11:18 12-Lead ECG Response: UnchangedSucceeded Timeline 10:26,Call Received 10:29,Dispatched 10:29,En Route 10:31,Initial Responder On Scene 10:31,On Scene 10:32,At Patient 10:35,BP: 90/58 M,PULSE: 70,RR: 20 R,SPO2: 97 Ox,ETCO2: ,B,PAIN: 0,GCS: 15, 10:37,BP: 85/52 M,PULSE: ,RR: R,SPO2: Ox,ETCO2: ,BG: ,PAIN: ,GCS: , 10:41,12-Lead ECG,Response: UnchangedSucceeded, 10:41,BP: / M,PULSE: ,RR: R,SPO2: Ox,ETCO2: ,BG: ,PAIN: ,GCS: , 10:50,IV Bolus - Normal Saline (.9% NaCl) 500cc 18 ga Site: Antecubital-Left,Response: ImprovedSucceeded, 10:50,BP: 88/55 M,PULSE: 90,RR: 20 R,SPO2: 98 Ox,ETCO2: ,BG: ,PAIN: ,GCS: 15, 10:56,Depart Scene 11:05,BP: 101/54 M,PULSE: 88,RR: 20 R,SPO2: 97 Ox,ETCO2: ,BG: ,PAIN: ,GCS: 15, 11:18,At Destination 11:18,12-Lead ECG,Response: UnchangedSucceeded, [place] [address] EMS Patient Care Report Name: ARIS CATHERINE Michelle Room: [address] IN [facility]#: [id number] Admission: 03/04/21 Attend Phys: Tera Moody Discharge: Date of : 42 Report #: [id number] 11:18,BP: / M,PULSE: ,RR: R,SPO2: Ox,ETCO2: ,BG: ,PAIN: ,GCS: , 11:20,Transfer Patient 11:30,Call Closed 11:56,In District Disclaimer v1.1 Copyright 2020 [employer] This EMS Care Summary contains data elements from the applicable legal record (which may be displayed differently). It is designed to provide pertinent information for the following purposes: continuity of care, clinical quality, and state data reporting. The complete legal record is available to ED staff and administrators of the receiving hospital in [facility]'s Patient Tracker. All data is provided "as is."
--- NOTE | ~2021-03-04 | EMS ---
[facility] [address] [place] [address] EMS Patient Care Report Name: ARIS CATHERINE Room: [place] [address] ADM IN [facility]#: [id number] Admission: 03/04/21 Attend Phys: Tera Moody Discharge: Date of : 42 Report #: [id number] THIS REPORT FOR: //name// Report Transmitted: 03/04/2021 19:16 EMS Care Summary [place] [facility] Incident 21-1298 @ 03/04/2021 10:29 Incident Location [address] [place] [address] Patient ARIS CATHERINE Female, 80 Years 1940 Patient Address [address] [place] [address] Patient History Atrial Fibrillation, Patient Allergies No known allergies, Patient Medications Unknown, Chief Complaint Generalized weakness Disposition Transported No Lights/[place] Dispatch Reason Sick Person Transported To [facility] Narrative Dispatched to a residence for 80y/o female who is weak. Upon arrival pt. was sitting on a walker seat, A&Ox4, and c/o general weakness that worsens with standing. Pt. stated that she has felt weak for approx. 1 week and has had several falls during that time. Pt. denies falling today. Pt. stated that she [facility] [address] [facility] [place] [id number] EMS Patient Care Report Name: ARIS CATHERINE Room: [address] IN [facility]#: [id number] Admission: 03/04/21 Attend Phys: Tera Moody Discharge: Date of : 42 Report #: [id number] hit the back of her head yesterday and a small knot is palpable. BP was checked both sitting and standing with a small drop when standing. 12-lead EKG showed A-fib with PVCs and artifact. IV was started then 500ml NS bolus given en route with some improvement to BP. Pt. also stated that she didn't feel as lightheaded post bolus. Pt. was transported to [place] for emergency services. Initial Vitals @10:50P: 90,R: 20,BP: 88/55,GCS: 15,SpO2: 98,Revised Trauma: 11, @10:41 @11:05P: 88,R: 20,BP: 101/54,GCS: 15,SpO2: 97,Revised Trauma: 12, @11:18 @10:35P: 70,R: 20,BP: 90/58,Pain: 0/10,GCS: 15,Glucose: 144,SpO2: 97,Revised Trauma: 12, @10:37BP: 85/52, Impression Generalized Weakness Procedures @10:50 IV Bolus - Normal Saline (.9% NaCl) 500cc (18 ga) Site: Antecubital-Left Response: ImprovedSucceeded @10:41 12-Lead ECG Response: UnchangedSucceeded @11:18 12-Lead ECG Response: UnchangedSucceeded Timeline 10:26,Call Received 10:29,Dispatched 10:29,En Route 10:31,Initial Responder On Scene 10:31,On Scene 10:32,At Patient 10:35,BP: 90/58 M,PULSE: 70,RR: 20 R,SPO2: 97 Ox,ETCO2: ,B,PAIN: 0,GCS: 15, 10:37,BP: 85/52 M,PULSE: ,RR: R,SPO2: Ox,ETCO2: ,BG: ,PAIN: ,GCS: , 10:41,12-Lead ECG,Response: UnchangedSucceeded, 10:41,BP: / M,PULSE: ,RR: R,SPO2: Ox,ETCO2: ,BG: ,PAIN: ,GCS: , 10:50,IV Bolus - Normal Saline (.9% NaCl) 500cc 18 ga Site: Antecubital-Left,Response: ImprovedSucceeded, 10:50,BP: 88/55 M,PULSE: 90,RR: 20 R,SPO2: 98 Ox,ETCO2: ,BG: ,PAIN: ,GCS: 15, 10:56,Depart Scene 11:05,BP: 101/54 M,PULSE: 88,RR: 20 R,SPO2: 97 Ox,ETCO2: ,BG: ,PAIN: ,GCS: 15, 11:18,At Destination 11:18,12-Lead ECG,Response: UnchangedSucceeded, [place] [address] EMS Patient Care Report Name: ARIS CATHERINE Room: [place] [address] ADM [place] [facility]#: [id number] Admission: 03/04/21 Attend Phys: Tera Moody Discharge: Date of : 42 Report #: [id number] 11:18,BP: / M,PULSE: ,RR: R,SPO2: Ox,ETCO2: ,BG: ,PAIN: ,GCS: , 11:20,Transfer Patient 11:30,Call Closed 11:56,In District Disclaimer v1.1 Copyright 2020 [employer] This EMS Care Summary contains data elements from the applicable legal record (which may be displayed differently). It is designed to provide pertinent information for the following purposes: continuity of care, clinical quality, and state data reporting. The complete legal record is available to ED staff and administrators of the receiving hospital in [facility]'s Patient Tracker. All data is provided "as is."
[~2021-03-04 11:32] MED LIST changes: +ATORVASTATIN CA20 MG PO; +CLONIDINE HCL0.3 M3 PO; +COZAAR 25 MG TA25 M1 PO; +CVS SENNA PLUS1 EACH PO; +HYDROCHLOROTHIA25 M1 PO; +TRAZODONE HCL50 MG PO
[2021-03-04 11:46] VITALS: BP 103/52
[2021-03-04 12:27] LABS: ABSOLUTE BASOPHILS 0.1 thou/uL (0.0-0.2); ABSOLUTE MONOCYTES 0.9 thou/uL (0.0-1.2); ABSOLUTE NEUTROPHILS 7.4 thou/uL (1.6-8.1); BASOPHILS 0.6 %; EOSINOPHILS 0.4 %; HEMATOCRIT 29.1 % (37.0-47.0); HEMOGLOBIN 9.6 gm/dL (12.0-15.0); LYMPHOCYTES 10.3 %; MCH 29.9 pg (26.0-34.0); MCHC 32.8 g/dL (28.0-37.0); MCV 91.1 fL (80.0-100.0); MONOCYTES 9.9 %; MPV 6.8 fl. (7.2-11.1); NUCLEATED RBCS 0 /100WBC; PLATELET COUNT* 446 thou/uL (150-400); POLYS 78.8 %; WBC 9.4 thou/uL (4.0-11.0)
--- NOTE | 2021-03-04 12:29 | EKG ---
[place] [address] ELECTROCARDIOGRAM REPORT Name: ARIS CATHERINE Room: [facility]#: [id number] Admission: Attend Phys: Discharge: Date of : 42 Date of Service: 03/04/21 1220 Report #: [id number] THIS REPORT FOR: //name// [facility] ED Test Date: 2021-03-04 Test Time: 12:20:34 Pat Name: ARIS CATHERINE Department: Room: Gender: [employer]: : 1940 Requested By: Michael Villegas Order Number: [id number] MD: Priyank Kulkarni Measurements Intervals [place] Rate: 82 P: 71 AR: 171 QRS: 57 QRSD: 98 T: -85 QT: 397 QTc: 464 Interpretive Statements Sinus rhythm with premature atrial complexes LVH by voltage ST segment depression, consider ischemia compared to ECG 12/26/2020 13:45:54 Sinus bradycardia no longer present Poor R-wave progression no longer present Electronically Signed On 03-04-2021 12:29:20 SPANISH INTERPRETER by Priyank Kulkarni [email or web address] <ELECTRONICALLY SIGNED> By: Priyank Kulkarni MD, FACC 03/04/21 1229 1220 1220 Priyank Kulkarni MD, FAC /EPI
[2021-03-04 12:43] LABS: CALCIUM 9.3 mg/dL (8.5-10.1); CREATININE 2.3 mg/dL (0.6-1.3)
[2021-03-04 12:44] LABS: POTASSIUM 2.9 mmol/L (3.5-5.1)
[2021-03-04 13:00] LABS: ALBUMIN 2.6 g/dL (3.4-5.0); TOTAL BILIRUBIN 0.3 mg/dL (<0.1-1.0); TOTAL PROTEIN 6.9 g/dL (6.4-8.2)
[2021-03-04 13:37] LABS: URINE BILIRUBIN NEGATIVE (Negative); URINE BLOOD 2+ (Negative); URINE COLOR YELLOW; URINE GLUCOSE-RANDOM NEGATIVE (Negative); URINE KETONES NEGATIVE (Negative); URINE PROTEIN 1+ (Negative); URINE UROBILINOGEN 0.2 E.U./dl (0.2-1.0)
[2021-03-04 13:49] LABS: URINE CLARITY CLOUDY; URINE LEUKOCYTES-REFLEX 2+ (Negative); URINE NITRITE-REFLEX POSITIVE (Negative)
[2021-03-04 13:51] LABS: BACTERIA-REFLEX >30 Many /HPF (None Seen); CASTS None Seen /LPF (None Seen); CRYSTALS None Seen /LPF (None Seen); SQUAMOUS 0-3 Few /LPF (0-3); URINE RBC 3-10 Few /HPF (0-2); URINE WBC-REFLEX >25 Many /HPF (0-5)
[2021-03-04 17:53] VITALS: BP 105/54
[2021-03-04 19:59] VITALS: BP 114/69
[2021-03-04 20:14] VITALS: BP 114/69
[2021-03-04 22:00] VITALS: BP 115/63
[2021-03-05 02:43] VITALS: BP 113/60
[2021-03-05 05:51] VITALS: BP 111/56
[2021-03-05 11:05] VITALS: BP 146/76
[2021-03-05 15:49] VITALS: BP 170/92
[2021-03-05 19:59] VITALS: BP 159/82
[2021-03-06 00:36] VITALS: BP 174/81
[2021-03-06 05:25] VITALS: BP 158/77
[2021-03-06 07:31] LABS: HEMATOCRIT 27.7 % (37.0-47.0); MCHC 32.6 g/dL (28.0-37.0); MCV 92.1 fL (80.0-100.0); RBC 3.01 mil/uL (4.20-5.00); RDW-CV 18.3 % (10.5-14.5); WBC 7.8 thou/uL (4.0-11.0)
[2021-03-06 07:43] LABS: CALCIUM 8.9 mg/dL (8.5-10.1); CREATININE 1.5 mg/dL (0.6-1.3); MAGNESIUM 1.9 mg/dL (1.8-2.4); POTASSIUM 3.3 mmol/L (3.5-5.1)
[2021-03-06 08:55] VITALS: BP 172/90
[2021-03-06 13:15] VITALS: BP 161/75
[2021-03-06 17:20] VITALS: BP 174/85
[2021-03-07] VITALS: BP 160/83
[2021-03-07 04:00] VITALS: BP 180/84
[2021-03-07 08:30] VITALS: BP 189/97
[2021-03-07 11:55] VITALS: BP 157/81
[2021-03-07 15:38] LABS: CALCIUM 8.5 mg/dL (8.5-10.1); CREATININE 1.4 mg/dL (0.6-1.3); MAGNESIUM 1.6 mg/dL (1.8-2.4)
[2021-03-07 15:59] VITALS: BP 119/70
[2021-03-08] VITALS: BP 107/66
[2021-03-08 04:00] VITALS: BP 117/7
[2021-03-08 08:00] VITALS: BP 145/71
[2021-03-08 12:23] VITALS: BP 116/60
[2021-03-08] MEDS ORDERED: CEFDINIR300 MG PO (12:55)
[2021-03-08 16:15] VITALS: BP 116/60
== END 2021-03-08 18:09 | disposition home health service (06) | DRG 871 ==
LOC: M.ERS 11:32 → M.TBA-ER 15:11 → M.2W 15:11 → M.TBA-ER 17:50 → M.2W 21:08
PROVIDERS: Family Medicine; Internal Medicine; ADMIT Internal Medicine; ATTEND Internal Medicine
DX: A41.89 Other specified sepsis (principal); N17.0 Acute kidney failure with tubular necrosis; N30.00 Acute cystitis without hematuria; Z20.822 Contact with and (suspected) exposure to COVID-19; I50.9 Heart failure, unspecified; M19.90 Unspecified osteoarthritis, unspecified site; E78.5 Hyperlipidemia, unspecified; E87.6 Hypokalemia; I11.0 Hypertensive heart disease with heart failure; R54 Age-related physical debility; Z95.5 Presence of coronary angioplasty implant and graft; Z85.3 Personal history of malignant neoplasm of breast; Z90.13 Acquired absence of bilateral breasts and nipples; Z90.49 Acquired absence of other specified parts of digestive tract; Z90.710 Acquired absence of both cervix and uterus; Z88.6 Allergy status to analgesic agent; Z87.891 Personal history of nicotine dependence; Z23 Encounter for immunization